=== PATIENT | female | born 1970 | race Hispanic/Latino ===

== ENCOUNTER → 2018-10-03 | Day surgery (SDC) | payer OTHER ==
[~2018-10-03] MED LIST: FENTANYL CITRATE/PF 100MCG/2 ML INJ ONE; KETAMINE HCL INJ 50 MG/ML 10 ML VIAL ONE; LOSARTAN POTASS25 MG PO; MICROGESTIN1 EAC1 PO; MIDAZOLAM HCL 2 MG/2 ML VIAL ONE; PROPOFOL IV EMULSION 10 MG/ML 50 ML VIAL ONE
[2018-10-03 13:10] VITALS: BP 148/78
--- NOTE | 2018-10-03 14:15 | Operative Report ---
DATE OF PROCEDURE: SURGEON: Rickey Mantilla MD PROCEDURE: Colonoscopy and polypectomy. INDICATIONS FOR COLONOSCOPY: Occult blood in stool. MEDICATIONS: The patient was done under MAC, please see anesthesiologist's note. PROCEDURE IN DETAIL: With the patient in left lateral decubitus position, flexible fiberoptic Olympus colonoscope was inserted into the rectum with ease and advanced all the way to the cecum. Mucosa overlying the cecum appeared to be within normal limits. There was a prominent fold noted in the proximal ascending colon that was biopsied. The rest of the ascending, transverse appeared to be within normal limits. One polyp was hot biopsied from the descending colon. Four polyps were hot biopsied from the sigmoid colon. The mucosa overlying the distal rectum was somewhat raised with an overlying fine nodularity. Biopsies were obtained. The scope was then retroflexed into the distal rectum and small internal hemorrhoids were noted, none of which was actively bleeding. The scope was then straightened out, it was subsequently withdrawn. The patient tolerated the procedure well. IMPRESSION: 1. Prominent fold, ascending colon, biopsied. 2. Descending colon polyp, hot biopsied. 3. Sigmoid colon polyps x4, hot biopsied. 4. Distal mucosa overlying the distal rectum is somewhat raised with an overlying fine nodularity. Biopsies obtained. 5. Internal hemorrhoids, none actively bleeding. PLAN: Follow up histology. Initiate high-fiber, low-fat diet. Initiate high-fiber supplement. Timing of followup colonoscopy pending pathology report. Rickey Mantilla MD [facility] – [place] /[id number] cc: Xavier Remy MD
== END | disposition home or self-care (01) ==
LOC: OR 09:07
PROVIDERS: ATTEND Internal Medicine Gastroenterology
DX: K92.1 Melena (principal); K63.5 Polyp of colon; K63.89 Other specified diseases of intestine; K62.89 Other specified diseases of anus and rectum; K64.8 Other hemorrhoids; I10 Essential (primary) hypertension; Z88.0 Allergy status to penicillin; Z01.810 Encounter for preprocedural cardiovascular examination; Z68.32 Body mass index [BMI] 32.0-32.9, adult
CPT/HCPCS: 45380; 45384; 93005; J2250; J2704; 45378

== ENCOUNTER 2024-01-04 09:06 | Emergency (ER) | payer BC ==
[~2024-01-04] VITALS: Ht 157.5 cm; Wt 79.4 kg
[~2024-01-04 09:06] MED LIST changes: -FENTANYL CITRATE/PF 100MCG/2 ML INJ ONE; -KETAMINE HCL INJ 50 MG/ML 10 ML VIAL ONE; -MIDAZOLAM HCL 2 MG/2 ML VIAL ONE; -PROPOFOL IV EMULSION 10 MG/ML 50 ML VIAL ONE
[2024-01-04 09:10] VITALS: TEMP 97.8
[2024-01-04] MEDS: KETOROLAC TROMETHAMINE 30 MG/ML VIAL IV STA (10:23)
[2024-01-04 10:34] LABS: ANION GAP 17.7 mmol/L (8-16); BLOOD UREA NITROGEN 21 mg/dL (7-26); BUN/CREATININE RATIO 26 (6-25); CALCIUM 9.5 mg/dL (8.4-10.2); CARBON DIOXIDE 20 mmol/L (22-29); CHLORIDE 107 mmol/L (98-107); CREATININE, SERUM 0.81 mg/dL (0.57-1.11); EST GLOMERULAR FILTRATION RATE 87 ML/MIN (>=60); GLUCOSE 84 mg/dL (74-118); POTASSIUM 3.7 mmol/L (3.5-5.1); SODIUM 141 mmol/L (136-145)
[2024-01-04 10:35] LABS: CREATINE KINASE 41 IU/L (29-168); TROPONIN I < 0.001 ng/mL (0-0.300)
[2024-01-04 10:42] LABS: HEMATOCRIT 42.9 % (34.2-44.1); LYMPHOCYTES % 35.8 % (18.0-39.1); MEAN CORPUSCULAR HEMOGLOBIN 29.2 pg (28-32); MEAN CORPUSCULAR HGB CONC 32.6 g/dL (31-35); MEAN CORPUSCULAR VOLUME 89.6 fL (81-99); MONOCYTES % 10.6 % (4.4-11.3); NEUTROPHILS % 47.3 % (38.7-80.0); PLATELET COUNT 256 x10e3/uL (140-360); RED BLOOD COUNT 4.79 x10e6/uL (3.6-5.1); RED CELL DISTRIBUTION WIDTH 12.5 % (11.7-14.4); WHITE BLOOD COUNT 7.99 x10e3/uL (4.8-10.8)
[2024-01-04 10:43] LABS: BASOPHILS # (AUTO) 0.1 (0.0-0.1); EOSINOPHILS # (AUTO) 0.4 (0.0-0.4); LYMPHOCYTES # (AUTO) 2.9 (1.0-3.2); MONOCYTES # (AUTO) 0.9 (0.2-0.8); NEUTROPHILS # (AUTO) 3.8 (2.1-6.9)
[2024-01-04 14:17] VITALS: PULSE 77; RESP 16; O2SAT 99
== END 2024-01-04 14:48 | disposition home or self-care (01) ==
LOC: ER 09:22
DX: R07.9 Chest pain, unspecified (principal); I10 Essential (primary) hypertension
CPT/HCPCS: 36415; 71046; 80048; 82550; 84484; 85025; 85379; 93005; 99284; J1885

== ENCOUNTER → 2024-01-18 | Outpatient (REF) | payer BC | LOC: RAD 14:11 | PROVIDERS: ATTEND Internal Medicine | DX: R01.1 Cardiac murmur, unspecified (principal); M50.30 Other cervical disc degeneration, unspecified cervical region | CPT/HCPCS: 72141; 93306 ==